=== PATIENT | female | born 1995 | race Caucasian/White ===

== ENCOUNTER 2019-01-01 11:35 | Outpatient (REF) | payer OTHER, SELFPAY ==
--- NOTE | 2019-01-01 10:10 | PAPFT_PTH ---
PATIENT: Patricia Collazo LOC: [facility] U#:[id number] AGE/SX: 23/F ROOM: RE01/01/[address]: BRISSA Beck : 1995 BED: DIS: 01/01/2019 SPEC #: [id number] RECD: 01/01/19 13:03 STATUS: HAYLEEIsaías TEJEDA #: [id number] KWAME: 01/01/19 10:[address]: Leslie White DEPT: [facility] Cytology RECD BY: Luana Mclean ENTERED: 01/01/19 13:04 SP TYPE: PAPFT OTHR DR: Jessica Engle MD Tissues: 1 - CX/ENDOCX FOR PAP SMEARS Procedures: PAP THIN PREP/[facility] Screening Comments: [id number]
== END 2019-01-01 11:55 ==
LOC: LBN 11:35
PROVIDERS: PCP Pediatrics; Visit Provider Nurse Practitioner Family
DX: Z12.4 Encounter for screening for malignant neoplasm of cervix (principal)
CPT/HCPCS: 88142

== ENCOUNTER 2020-03-27 16:15 | Outpatient (REF) | payer BC, SELFPAY ==
--- NOTE | 2020-03-27 15:45 | PAPFT_PTH ---
PATIENT: Patricia Collazo LOC: [facility] U#:[id number] AGE/SX: 25/F ROOM: RE03/27/[address]: BRISSA Beck : 1995 BED: DIS: 03/27/2020 SPEC #: [id number] RECD: 03/27/20 18:13 STATUS: SHABBIR REQ #: [id number] KWAME: 03/27/20 15:[address]: Leslie White DEPT: [facility] Cytology RECD BY: Luana Mclean ENTERED: 03/27/20 18:14 SP TYPE: PAPFT OTHR DR: Jessica Engle MD Tissues: 1 - CX/ENDOCX FOR PAP SMEARS Procedures: PAP THIN PREP/UVM Screening Comments: [id number]
== END 2020-03-27 16:35 ==
LOC: LBN 16:15
PROVIDERS: PCP Pediatrics; Visit Provider Nurse Practitioner Family
DX: Z12.4 Encounter for screening for malignant neoplasm of cervix (principal)
CPT/HCPCS: 88142

== ENCOUNTER 2021-03-16 02:51 | Outpatient (CLI) | payer OTHER, SELFPAY ==
[2021-03-16 11:59] LABS: Kit/Specimen SENT
[2021-03-16 12:03] LABS: Abs Immature Grans 0.04 10^3/uL (0.0-0.06); Absolute Basophil Count 0.07 10^3/uL (0.0-0.2); Absolute Eosinophil Count 0.15 10^3/uL (0.0-0.7); Absolute Monocyte Count 0.95 10^3/uL (0.1-0.8); Basophils % 0.6; Eosinophils % 1.2; HCT 37.3 % (36.0-46.0); HGB 12.5 g/dL (11.2-15.7); Immature Grans % 0.3; Lymphocytes % 18.3; MCH 30.1 pg (27.0-33.0); MCHC 33.5 % (32.0-36.0); MCV 89.9 fL (80-95); MPV 9.5 fL (8.0-11.0); Monocytes % 7.6; Nucleated RBC 0 %; Platelet Count 230 10^3/uL (130-400); RBC 4.15 10^6/uL (3.93-5.22); RDW 12.3 % (11.7-14.6); RDW-SD 40.3 fL; WBC 12.49 10^3/uL (4.4-10.8)
[2021-03-16 12:04] LABS: Absolute Lymphocyte Count 2.29 10^3/uL (1.2-3.4); Absolute Neutrophil Count 8.99 10^3/uL (1.2-6.7)
[2021-03-17 09:46] LABS: HIV-1/2 Ag & Ab Screen Negative (Negative)
[2021-03-18 13:54] LABS: Syphilis Total Ab w/Reflex Nonreactive (Nonreactive)
[2021-03-19 09:26] LABS: Hepatitis B Surface Ag Negative (Negative)
[2021-03-19 10:45] LABS: Hepatitis C Ab w Rflx HCV PCR Negative (Negative)
[2021-03-19 12:49] LABS: Rubella IgG Ab (UVM) Positive (See Note); Varicella IgG Antibody Positive (See Note)
[2021-03-19 15:12] LABS: Chlamydia Result Negative (Negative); GC Result Negative (Negative)
== END 2021-03-16 02:52 | disposition home or self-care (01) ==
LOC: LBO 02:51
PROVIDERS: Visit Provider Advanced Practice Midwife
DX: Z34.91 Encounter for supervision of normal pregnancy, unspecified, first trimester (principal); Z11.3 Encounter for screening for infections with a predominantly sexual mode of transmission; Z11.4 Encounter for screening for human immunodeficiency virus [HIV]; Z11.59 Encounter for screening for other viral diseases; Z01.84 Encounter for antibody response examination
CPT/HCPCS: 80307; 86787; 86803; 86850; 86900; 86901; 87340; 87389; 87491; 87591; 85025; 86762; 86780; 87086

== ENCOUNTER 2021-07-20 02:06 | Outpatient (CLI) | payer OTHER, SELFPAY ==
[2021-07-20 08:19] LABS: HCT 35.7 % (36.0-46.0); HGB 11.6 g/dL (11.2-15.7); MCH 30.1 pg (27.0-33.0); MCHC 32.5 % (32.0-36.0); MCV 92.7 fL (80-95); MPV 9.8 fL (8.0-11.0); Platelet Count 191 10^3/uL (130-400); RBC 3.85 10^6/uL (3.93-5.22); RDW 13.7 % (11.7-14.6); RDW-SD 46.5 fL; WBC 11.94 10^3/uL (4.4-10.8)
[2021-07-20 08:28] LABS: Glucose,1 Hr (Glucola) 137 mg/dL (80-140)
== END 2021-07-20 02:07 | disposition home or self-care (01) ==
LOC: LBO 02:06
PROVIDERS: Visit Provider Advanced Practice Midwife
DX: Z34.93 Encounter for supervision of normal pregnancy, unspecified, third trimester (principal); Z3A.28 28 weeks gestation of pregnancy
CPT/HCPCS: 36415; 82950; 85027

== ENCOUNTER 2021-07-27 03:24 | Outpatient (CLI) | payer OTHER, SELFPAY ==
[2021-07-27 09:28] LABS: Glucose 1 Hour 135 mg/dL
[2021-07-27 11:28] LABS: Glucose 3 Hour 95 mg/dL
== END 2021-07-27 03:25 | disposition home or self-care (01) ==
LOC: LBO 03:24
PROVIDERS: Visit Provider Advanced Practice Midwife
DX: Z34.93 Encounter for supervision of normal pregnancy, unspecified, third trimester (principal)
CPT/HCPCS: 36415; 82951

== ENCOUNTER 2021-09-12 16:25 | Outpatient (REF) | payer OTHER, SELFPAY ==
[2021-09-12 17:19] LABS: *AMPHETAMINES SCREEN URINE Negative (Negative); *BARBITURATES SCREEN URINE Negative (Negative); *BENZODIAZEPINES SCREEN URINE Negative (Negative); Cannabinoids THC Negative (Negative); Cocaine Screen,Urine Negative (Negative); METHADONE URINE SCREEN Negative (Negative); OPIATES URINE SCREEN Negative (Negative); Tricyclic Antidepressants Negative (Negative)
[2021-09-19 09:39] LABS: Buprenorphine Negative ng/mL (Cutoff: 5.0); Norbuprenorphine Negative ng/mL (Cutoff: 2.5)
== END 2021-09-12 16:26 | disposition home or self-care (01) ==
LOC: LBN 16:25
PROVIDERS: Visit Provider Advanced Practice Midwife
DX: Z34.93 Encounter for supervision of normal pregnancy, unspecified, third trimester (principal); Z3A.35 35 weeks gestation of pregnancy
CPT/HCPCS: 80307; 87081

== ENCOUNTER 2021-10-07 13:10 | Observation (INO) | payer OTHER, SELFPAY ==
[2021-10-07 13:35] VITALS: BP 114/75; PULSE 84; TEMP 36.8
[2021-10-07 13:39] VITALS: BP 114/75; PULSE 84
[2021-10-07 13:51] LABS: ROM Plus Negative
--- NOTE | 2021-10-07 13:56 | PDOC.NST_ITS ---
Date of service: 10/07/21 Time of Service: 13:35 NST Evaluation Reason for NST Reasons for Nonstress Test: FALSE LABOR Gestational Age Gestational Age in Weeks and Days: 39 Weeks and 3Days Test and Monitor Explained Test/Monitor Explained: Test Explained, Monitor Explained and Patient Verbalized Understanding Vital Signs Blood Pressure: 114/75 Pulse: 84 Temperature: 98.2 F NST Information Date on Monitor: 10/07/21 Time on Monitor: 13:12 Date off Monitor: 10/07/21 Time off Monitor: 13:44 Total Time on Monitor: 32 NST Interventions: PO Hydration NST Evaluation Patient States Movement: Present FHR Baseline: 140 Variability: Moderate 6-25 bpm Accelerations: 15x15 Decelerations: None NST Results: Reactive Note NST Note Note: G1 at 39w3d presents for evaluation of possible ROM with reported small amount of fluid soaking inside of underwear this morning at 0500 but none since. Reports contractions that are tightening but not uncomfortable and active baby. Ferning is negative and ROM+ is negative today, SSE cervix closed and no fluid from OS with patient coughing. NST is reactive and reassuring. 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 Discharged from NST ambulatory and in satisfactory condition. WENDI NST Reviewed and Verified by: Stephanie Nazario
[2021-10-07 13:59] VITALS: BP 114/75; PULSE 84; TEMP 36.8
== END 2021-10-07 14:00 | disposition home or self-care (01) ==
PROVIDERS: Admitting Provider Advanced Practice Midwife; Visit Provider Advanced Practice Midwife
DX: O47.1 False labor at or after 37 completed weeks of gestation (principal); Z3A.39 39 weeks gestation of pregnancy
CPT/HCPCS: 84112; 59025

== ENCOUNTER 2021-10-08 12:09 | Inpatient (IN) | payer OTHER, SELFPAY ==
[2021-10-08] VITALS (16 sets, daily range): BP systolic 107–124; BP diastolic 67–78; PULSE 72–134; RESP 16–20; TEMP 36.7–37.2; O2SAT 96–100
--- NOTE | 2021-10-08 12:10 | W.PM.OBHPL1 ---
Date of service: 10/08/21 Time of Service: 12:10 Assessment and Plan Assessment and plan (1) Irregular uterine contractions: Status: Acute Assessment and plan: will observe times 2 hours and reassess. Not in active labor at this time. No leaking of fluid. WENDI OB-HPI Labor/Delivery History of Present Illness Reason for Visit: Pre-Jorge Chief Complaint: Uterine Contractions; Suspected Rupture of Membranes , Associated Signs and Symptoms of Suspected ROM: none noted at this time, assumed negative for ROM. WENDI. COLTON Calculator Estimated Delivery Date Method Current WG Current Estimate 10/11/21 Ultrasound #1 39w 4d Other Estimates 10/04/21 LMP (Certain) 40w 4d Comments: states contractions became stronger at 0500 today and that when she bent over to trim her toenails she had discharge. Uncertain if her water is leaking. She has not had to wear a pad since that time. States contractions became less on trip to the hospital. She is accompanied by her Mother and FOB. Wendi History of Present Expected Delivery Route/Plan - RUIZM FOB/lew Collazo (first child) BG Rosario Clemens FOB & pt's mother Liliana will be supports (both are vaccinated) GBS POSITIVE, plan for PCN prophylaxis in labor Specific Issues/Plan 1. [place] test done, wants gender placed in envelope for peanut picker. Declines AFP. 2. History of sacrum injury - mild back pain. 3. low lying placenta at 18 week US (0.9 cm from tip of os) 3a. Repeat US 28 wks 07/13 resolved 4. As of 06/11, both pt and FOB are fully vaccinated 5. 1-hr GTT - 137 , 3-hr GTT done 07/27: nml x4 6. Restless legs and leg cramps - magnesium recommend daily 7. Heartburn - TUMS PRN Assessment: History Reviewed & Current Review of Systems All systems reviewed & are unremarkable except as noted in HPI and below PFSH All Active Problems (Updated 10/08/21 @ 12:18 by Stephanie Nazario CNM) Irregular uterine contractions (Acute) GBS (group B Streptococcus carrier), +RV culture, currently (Acute) (Acute) Medical History Contraception (09/18/15) Injury of sacrum age 16, did physical therapy Low lying placenta nos or without hemorrhage, second trimester resolved 07/13/21 Positive test Family History Mother Healthy adult Depression Father Healthy adult Sister Asthma outgrown Depression Other Diabetes mat great GM Stroke MGGF Maternal Grandfather Colon cancer Paternal Grandmother Colon cancer Paternal Grandfather Prostate cancer Social History Smoking/Tobacco Use Status: Never Smoking risk assessment performed?: Yes Alcohol Intake: never Drug use: Never Adopted: No Household members: significant other and other Details: BF- Fu / 2 dogs and a cat 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 [employer] History History 1 Para 0 Hx # Term Pregnancies 0 Multiple births 0 Hx # Pregnancies 0 Ectopic pregnancies 0 AB induced 0 Hx Number of Living Children 0 AB spontaneous 0 Meds Allergies and Home Medications Allergies Allergy/AdvReac Type Severity Reaction Status Date / Time Sulfa (Sulfonamide Allergy Mild Red and Unverified 10/08/21 12:16 Antibiotics) blotchy Home Medications Medication Instructions Recorded Confirmed Type prenat.vits,leilani,jxr-[id number] 1 tab PO DAILY 03/02/21 10/02/21 History cetirizine 10 mg tablet 10 mg PO DAILY PRN 03/16/21 10/02/21 History magnesium oxide 250 mg PO DAILY 09/12/21 10/02/21 History Exam Constitutional Constitutional: no acute distress Detailed Labor and Delivery Exam Dilation: 0.5 Effacement (%): 50 station: -3 Cervix position: posterior Consistency: medium Doss Score: Cervical Points Exam 0 1 2 3 Dilation Closed 1-2cm 3-4 cm 5-6cm Effacement 0-30% 40-50% 60-70% 80% Consistency Firm Medium Soft Station -3 -2 -1,0 +1,+2 Position Posterior Mid Anterior DOSS Score(Cervical Ripeness Score): 2 Amniotic Membrane Status: Intact Nitrazine: Equivocal (due to pink discharge on paper, no obvious leaking, membranes palpated with VE, no leaking from OS) Contraction Frequency(min): 3-6 Contraction Duration(sec): 60 Contraction Intensity: Mild/Moderate Fetus A Heart Rate Baseline: 130 Monitor Accelerations: 10 X 10 Monitor Decelerations: None Variability: Moderate (6-25 BPM) Categories: Category I Est. Weight: 6 lb 8 oz HEENT Exam HEENT Exam: Normal Neck Exam Neck Exam: Normal Chest/Brest/Axilla Exam Chest Exam: Not Done Breast Exam Breast Exam: Not Done Respiratory Exam Respiratory Exam: Normal Cardiovascular Exam Cardiovascular Exam: Normal Abdominal Exam Abdominal Exam: Normal Rectal Exam Rectal Exam: Not Done Exam Exam: Normal Detailed Exam Comments: perineum dry, no fluid observed on skin, no fluid return with VE. Nitrazine equivocal. KH Extremities Exam Extremities Exam: Normal Back/Spine/Pelvis Exam Back Exam: Not Done Pelvis Adequate: Yes Skin Exam Skin Exam: Normal Neurological Exam Neurological Exam: Normal Psychiatric Exam Psychiatric Exam: Normal Results Results Group Beta Strep: Positive Blood Type: O+ Rubella Status: Immune Varicella Immunity: Immune Risk Assessment Risk for Shoulder Dystocia Historical/Initial OB: NEGATIVE FOR: Pelvic Abnormality, Pre- BMI>30, Previous Shoulder Dystocia or Previous Macrosomia 40 Weeks: NEGATIVE FOR: EFW> 4500 gms, Maternal Weight Gain >40lb or Post Dates Increased Risk?: No Delivery Plan @ 40 wks: 10/08/21 YOSELYN ADAME Risk for Pre-Eclampsia Daily Dose ASA Indicated: No Date Initiated/Initials: not indicated Yes, if one or more: NEGATIVE FOR: Hx Pre-E/Gest HTN, Chronic HTN, Multiple Gestation, Pre-gestational DM, Renal Disease, Systemic Lupus or APA Syndrome Yes, if 2 or more: POSITIVE FOR: Nulliparity; NEGATIVE FOR: Age>= 35 yrs, >10yr btwn pregnancies, BMI>30, ethinicty, Mother/Sister w/ Pre-E or Previous IUGR Risk for Post- Hemorrhage Initial: NEGATIVE FOR: Multiple Gestation, Previous PPH, Known Clotting Deficiency, Grand Multiparity or Anticoagulation Risks Reviewed Risks Reviewed Upon Admission: Yes
[2021-10-08] MEDS: Ondansetron O.D.T. 4 MG TABEF PO (13:32)
[2021-10-08 13:54] LABS: ROM Plus Positive
--- NOTE | 2021-10-08 14:01 | W.PM.OBNL1 ---
Date of service: 10/08/21 Time of Service: 14:01 Informed Consent Informed Consent: Augmentation of Labor and Other (PCN for GBS prophylaxis) Pelvic Exam Comments: deferred as patient is remote from delivery and GBS + Fetus A Amniotic Membrane Status: Ruptured (1045 today with gush, no fluid since that time. WENDI) Date of Membrane Rupture: 10/08/21 Time of Membrane Rupture: 10:45 Assessment Note: patient is currently in tub but will be getting into bed for IV start and EFM tracing. Assessment and Plan Assessment and plan (1) Full-term PROM with onset of labor within 24 hours of rupture: Status: Acute Assessment and plan: will admit due to Positive ROM + testing and persistent contractions will begin PCN prophylaxis Will discuss potential for labor augmentation, risks, benefits and alternatives and continue to monitor for progression of uterine contractions. WENDI Objective Laboratory Results Membranes Rupture Positive 10/08/21 13:25 Vital Signs Reviewed: Yes Subjective Interval history since last seen: States contractions are getting stronger. ROM + is positive so patient will be admitted and we will begin PCN management of GBS + status. WENDI Interventions Other (PCN GBS prophylaxis)
[2021-10-08 14:37] LABS: Source Nasal/Nares
[2021-10-08 15:11] LABS: HCT 37.7 % (36.0-46.0); HGB 12.3 g/dL (11.2-15.7); MCH 29.9 pg (27.0-33.0); MCHC 32.6 % (32.0-36.0); MCV 91.5 fL (80-95); MPV 10.8 fL (8.0-11.0); Platelet Count 167 10^3/uL (130-400); RBC 4.12 10^6/uL (3.93-5.22); RDW 14.5 % (11.7-14.6); RDW-SD 48.1 fL; WBC 18.71 10^3/uL (4.4-10.8)
[2021-10-08] MEDS: Normal Saline Flush 10 ML SYR IVP ×2 (15:12→16:08)
[2021-10-08] MEDS: Penicillin G POT. 5,000,000 UNITS in Normal Saline 100 ML 200 UNITS IVPB (15:15)
[2021-10-08 15:23] LABS: COVID-19 PCR Negative (Negative)
--- NOTE | 2021-10-08 18:09 | W.PM.OBNL1 ---
Date of service: 10/08/21 Time of Service: 18:09 Informed Consent Informed Consent: Augmentation of Labor and Other (PCN for GBS prophylaxis) Pelvic Exam Dilation: 6.5 Effacement (%): 90 station: -1 Cervix Position: posterior Consistency: soft Vaginal Exam Presentation: Cephalic Comments: VE per patient request. She is relieved by progress and determined to continue without pain medication other than tub and nitrous oxide. Contractions Monitor Mode: Palpation Contraction Frequency(min): 2-4 Contraction Duration(sec): 60-90 Intensity: Moderate/Strong Fetus A Monitor: Novii (novii is on and intermittent FHR 130 then monitor is off.) Heart Rate Baseline: 130 Assessment and Plan Assessment and plan (1) Active labor at term: Status: Acute Assessment and plan: continue present management, expect NVD. (2) GBS (group B Streptococcus carrier), +RV culture, currently : Status: Acute Assessment and plan: will be receiving second dose of PCN within 1 hour. will continue every 4 hours until delivery. Objective Abnormal lab results 10/08/21 Range/Units 15:00 WBC 18.71 H (4.4-10.8) 10^3/uL Temp Pulse Resp BP 98.6 F 134 H 16 124/68 10/08/21 17:14 10/08/21 17:14 10/08/21 14:39 10/08/21 17:14 Laboratory Results WBC 18.71 10^3/uL (4.4-10.8) H 10/08/21 15:00 RBC 4.12 10^6/uL (3.93-5.22) 10/08/21 15:00 Hgb 12.3 g/dL (11.2-15.7) 10/08/21 15:00 Hct 37.7 % (36.0-46.0) 10/08/21 15:00 MCV 91.5 fL (80-95) 10/08/21 15:00 MCH 29.9 pg (27.0-33.0) 10/08/21 15:00 MCHC 32.6 % (32.0-36.0) 10/08/21 15:00 RDW 14.5 % (11.7-14.6) 10/08/21 15:00 Plt Count 167 10^3/uL (130-400) 10/08/21 15:00 MPV 10.8 fL (8.0-11.0) 10/08/21 15:00 Membranes Rupture Positive 10/08/21 13:25 COVID-19 Source Nasal/Nares 10/08/21 14:30 SARS-CoV-2 (PCR) Negative (Negative) 10/08/21 14:30 Patient ABO/Rh O Positive 10/08/21 15:00 Antibody Screen NEGATIVE 10/08/21 15:00 Vital Signs Reviewed: Yes Notable Details: pulse now in 80-90 range. Subjective Interval history since last seen: Patricia is in the tub with her Tank and her Mom at her side. She is using nitrous with good relief. Results Hemoglobin/Hematocrit: Hgb 12.3 g/dL (11.2-15.7) 10/08/21 15:00 Hct 37.7 % (36.0-46.0) 10/08/21 15:00 Abnormal Lab Findings: Abnormal Labs 10/08/21 15:00 WBC 18.71 H Additional Findings Results: COVID is negative.
[2021-10-08] MEDS: Oxytocin 10 UNITS/ML VIAL IM (20:34)
[2021-10-08] MEDS: Lidocaine 1% Multi-Dose 20 ML VIAL IJ (21:00)
--- NOTE | 2021-10-08 21:00 | OBVDS_ITS ---
Date of service: 10/08/21 Time of Service: 21:00 OB Labor/ Delivery Information Baby A Delivery Delivery Method: Spontaneaous Presentation: Cephalic Vertex Position: Right Occipital Transverse Cord Description-Baby A: 3 Vessels and Clamped/Cut Amniotic Fluid: Clear Estimated Blood Loss: 300 Delivery Outcome: Liveborn Transferred: Remains with Mother Note: Patricia Zuniga developed increasing rectal pressure and began to bear down involuntarily while in tub at 1999. VE 10/90/+1. Patient pushed with excellent effort and head delivered at 2022. Head was ROP and rotated to ROT due to patient positioning and difficulty opening her legs, we helped her with McR oberts position and the left shoulder was not coming with maternal pushing effort alone at 60 seconds and RN applied supra pubic pressure with excellent effect and shoulders and baby delivered quickly at 2023 and placed onto mother's chest for skin to skin. Baby was dried and stimulated and had lusty cry. score 7 at 1 minute and 9 at 5 minutes. Cord was double clamped and cut by FOB at 5 minutes of life. Pitocin 10 units IM is given. Placenta delivered via lopez mechanism, intact at 2039. Patient was able to get out of tub and transfer to bed where we were able to repair 1st degree midline perineal lac with 1 stitch of 3.0 chromic under 1% lidocaine. There are bilateral labia minora lacerations that are hemostatic and left unrepaired per patient request. Fundus firms to U-1 with massage. EBL 300 cc. Sponge, needle and instrument count are correct. Mother and baby are in satisfactory condition. Baby girl Rosario Clemens weight 7lb8oz. Patricia plans to breast feed her daughter. Positive family bonding noted. Providers Nurse Pantry Steward/Stewardess: Stephanie Nazario Nurse: Autumn Bishop Nurse: Joanna Jason Labor/Delivery Information Number of Babies in Womb: 1 Steroids Given: None Reason Steroids Not Administered: N/A Group Beta Strep: Positive Antibiotics Administered: Yes Number of Doses of Antibiotics: 2 Rubella Status: Immune Blood Type: O+ Varicella Immunity: Immune Maternal Complications: None Shoulder Dystocia: Yes Note: After head delivered and rotated from ROP to ROT, the left shoulder did not deliver with use of Taniya maneuver and at 1 minute of life we emplyed supra pubic pressure with excellent result of shoulders delivering easily and baby was brought to Mother's chest for skin to skin. Baby was dried and stimulated and had spontaneous cry. 7 at 1 minute and 9 at 5 minutes. See complete delivery note as well. KH Stages of Labor Onset of Labor Date: 10/08/21 Onset of Labor Time: 05:00 Complete Dilatation Date: 10/08/21 Complete Dilatation Time: 20:00 Labor - Stage 1 Duration: 0 minutes ROM Baby A: 10/08/21 ROM Baby A: 10:45 ROM Total Time- Baby A: [id number] Infant Delivery Date-Baby A: 10/08/21 Infant Delivery Time-Baby A: 20:24 Labor Stage 2 Duration: 24 minutes Placenta Delivery Date-Baby A: 10/08/21 Placenta Delivery Time-Baby A: 20:40 Labor-Stage 3 Duration: 16 minutes Total Length of Labor-Baby A: 15 hours and 24 minutes Placenta Status: Delivered Baby A Gender: Female Gestational Status: Term (39-41.6 wks) Gestational Age in Weeks/Days: 39 Weeks and 4 Days
[2021-10-08] MEDS: Ibuprofen 600 MG TAB PO (21:27)
[2021-10-08] MEDS: Acetaminophen 325 MG TAB 650 MG PO (21:27)
[2021-10-08] MEDS: Hamamelis Leaf/Glycerin 100 EACH BOX PR (21:28)
[2021-10-08] MEDS: Dibucaine 1% 28 GM TUBE TP (21:28)
[2021-10-09 00:24] VITALS: BP 120/73; PULSE 90; RESP 20; TEMP 37; O2SAT 96
[2021-10-09] MEDS: Acetaminophen 325 MG TAB 650 MG PO ×3 (03:30→15:53)
[2021-10-09] MEDS: Ibuprofen 600 MG TAB PO (03:30)
[2021-10-09 03:56] VITALS: BP 114/77; PULSE 90; RESP 20; TEMP 36.8; O2SAT 97
[2021-10-09 07:40] VITALS: BP 117/80; PULSE 83; RESP 16; TEMP 36.6; O2SAT 98
--- NOTE | 2021-10-09 07:57 | W.PM.OBPNV1 ---
Date of service: 10/09/21 Time of Service: 07:57 Assessment and Plan Assessment and plan (1) care following vaginal delivery: Start date: 10/09/21 Start time: 08:01 Status: Acute Assessment and plan: continue present management expect discharge 10/10/21 am. (2) Lactating mother: Status: Acute Assessment and plan: will continue to work with nursing and today to establish good breast feeding skills prior to discharge. Subjective Subjective Interval history: Feeling well. out of bed without difficulty. plans discharge tomorrow am. Patient comments: No complaints, Pain well controlled and Flatus present baby status: Doing well, Nursing well, Rooming in and Strong Bonding Observed feeding status: Exclusively breast feeding Exam Physical Exam Vital signs: Temp Pulse Resp BP Pulse Ox 98.2 F 90 20 114/77 97 10/09/21 03:56 10/09/21 03:56 10/09/21 03:56 10/09/21 03:56 10/09/21 03:56 Vital Signs Reviewed: Yes Constitutional Constitutional: no acute distress and average body habitus HEENT Exam HEENT Exam: Normal Neck Exam Neck Exam: Normal Breast Exam Bilateral: Breast Exam: Normal Nipple Exam: Normal Respiratory Exam Respiratory Exam: Normal Cardiovascular Exam Cardiovascular Exam: Normal Abdominal Exam Comments: Fundus firm at U, small lochia. Fundal Exam Fundus: Below Umbilicus and Firm Rectal Exam Rectal Exam: Hemmorhoids Comments: small hemorrhoids noted, soft. Extremities Exam Extremity Exam: Normal Back/Spine/Pelvis Exam Back Exam: Not Done Skin Exam Skin Exam: Normal Neurological Exam Neurological Exam: Normal Psychiatric Exam Psychiatric Exam: Normal Results Hemoglobin/Hematocrit: Hgb 12.3 g/dL (11.2-15.7) 10/08/21 15:00 Hct 37.7 % (36.0-46.0) 10/08/21 15:00 Abnormal Lab Findings: Abnormal Labs 10/08/21 15:00 WBC 18.71 H
[2021-10-09 12:00] VITALS: BP 118/76; PULSE 80; RESP 16; TEMP 36.7; O2SAT 98
[2021-10-09 16:00] VITALS: BP 112/80; PULSE 111; RESP 16; TEMP 36.8; O2SAT 97
[2021-10-09 20:15] VITALS: BP 117/79; PULSE 114; RESP 18; TEMP 36.8
[2021-10-10 01:15] VITALS: BP 107/73; PULSE 104; RESP 18
[2021-10-10] MEDS: Acetaminophen 325 MG TAB 650 MG PO (07:08)
[2021-10-10] MEDS: Docusate Sodium 100 MG CAP PO (07:17)
[2021-10-10 07:28] VITALS: BP 109/71; PULSE 88; RESP 18; TEMP 36.8; O2SAT 97
--- NOTE | 2021-10-10 09:04 | W.PM.OBPNV1 ---
Date of service: 10/10/21 Time of Service: 09:04 Assessment and Plan Assessment and plan (1) care following vaginal delivery: Status: Acute Assessment and plan: Caring for baby independently. Pain is managed well with oral analgesics. Voiding without difficulty. well. A - stable mother and baby , Post day 2 P - Discharge to home. Routine post instructions. [facility] Subjective Subjective Patient comments: Pain well controlled baby status: Doing well [place] feeding status: Exclusively breast feeding Narrative: in the tub over 1st degree laceration. Some discomfort with nursing, relieved with good positioning. She has received support from Zoey PEÑA Exam Physical Exam Vital signs: Temp Pulse Resp BP Pulse Ox 98.2 F 88 18 109/71 97 10/10/21 07:28 10/10/21 07:28 10/10/21 07:28 10/10/21 07:28 10/10/21 07:28 Vital Signs Reviewed: Yes Constitutional Constitutional: no acute distress Respiratory Exam Respiratory Exam: Normal Cardiovascular Exam Cardiovascular Exam: Normal Fundal Exam Fundus: Below Umbilicus Extremities Exam Extremity Exam: Normal Back/Spine/Pelvis Exam Back Exam: Normal Skin Exam Skin Exam: Normal Psychiatric Exam Psychiatric Exam: Normal Results Hemoglobin/Hematocrit: Hgb 12.3 g/dL (11.2-15.7) 10/08/21 15:00 Hct 37.7 % (36.0-46.0) 10/08/21 15:00 Abnormal Lab Findings: Abnormal Labs 10/08/21 15:00 WBC 18.71 H
--- NOTE | 2021-10-11 14:55 | W.PM.OBDISCH ---
Date of service: 10/11/21 Time of Service: 14:55 DS: Diagnosis Discharge Diagnosis (1) care following vaginal delivery: Status: Acute Asessment and Plan: Caring for baby independently. Pain is managed well with oral analgesics. Voiding without difficulty. well. A - stable mother and baby , Post day 2 P - Discharge to home. Routine post instructions. [facility]. (2) Lactating mother: Status: Acute Discharge Plan Disposition Patient Disposition: HOME Condition: Stable Discharge Details Reason For Visit: Irregular Contractions Admit Date/Time: 10/08/21 12:22 Admit Provider: Stephanie Nazario Attending Provider: Stephanie Nazario Primary Care Provider: Unknown,Unknown Home Meds and New Rx's Prescriptions: Continued cetirizine [Zyrtec] 10 mg tablet 10 mg PO DAILY PRNRF: 0 prenat.vits,leilani,[id number] Tablet 1 tab PO DAILY RF: 0 magnesium oxide 250 mg magnesium tablet 250 mg PO DAILY RF: 0 Discharge Instructions Stand Alone Forms: BC Instructions, BC Post Vaginal Deliver Activity:: Activity as Tolerated Equipment/Supplies:: No Equipment Needed Diet:: As Tolerated Discharge Orders Discharge Orders: Discharge Order (Routine); Ordered 10/10/21 Ordered By: Stephanie Thibodeaux Discharge Data Discharge Date/Time-TO BE ENTERED AT DEPARTURE: 10/10/21 11:30 OB:DS Summary Summary Vaginal Delivery Method: Spontaneaous Episiotomy Description: None Contraception Discussed Contraception Discussed: Yes Contraceptive Plan: Control Pill/Patch, Gender-Baby A: Female weight: 7 lb 7.755 oz Status at Discharge Functional status at discharge: independent ambulation Overall status at discharge: patient is back to baseline Mental Status: mental status grossly normal Speech and Movement: speech and movement normal Mood: congruent mood Affect: normal affect Exam Physical Exam Vital signs: Temp Pulse Resp BP Pulse Ox 98.2 F 88 18 109/71 97 10/10/21 07:28 10/10/21 07:28 10/10/21 07:28 10/10/21 07:28 10/10/21 07:28 Vital Signs Reviewed: Yes Constitutional Constitutional: no acute distress Respiratory Exam Respiratory Exam: Normal Cardiovascular Exam Cardiovascular Exam: Normal Fundal Exam Fundus: Below Umbilicus and Firm Exam Patient deferred: external exam Perineum: Repair Intact Extremities Exam Extremity Exam: Normal PFSH All Active Problems (Updated 10/09/21 @ 08:01 by Stephanie Nazario CNM) Lactating mother (Acute) care following vaginal delivery (Acute) (Acute) Medical History (Updated 10/09/21 @ 08:01 by Stephanie Nazario CNM) Active labor at term Contraception (09/18/15) Full-term PROM with onset of labor within 24 hours of rupture GBS (group B Streptococcus carrier), +RV culture, currently Injury of sacrum age 16, did physical therapy Irregular uterine contractions Low lying placenta nos or without hemorrhage, second trimester resolved 07/13/21 Positive test Family History Mother Healthy adult Depression Father Healthy adult Sister Asthma outgrown Depression Other Diabetes mat great GM Stroke MGGF Maternal Grandfather Colon cancer Paternal Grandmother Colon cancer Paternal Grandfather Prostate cancer Social History Smoking/Tobacco Use Status: Never Smoking risk assessment performed?: Yes Alcohol Intake: never Drug use: Never Adopted: No Household members: significant other and other Details: BF- Fu / 2 dogs and a cat 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 [employer] History History 1 Para 0 Hx # Term Pregnancies 0 Multiple births 0 Hx # Pregnancies 0 Ectopic pregnancies 0 AB induced 0 Hx Number of Living Children 0 AB spontaneous 0 DS: Data Vitals/I&O Vitals and I&O: Vital Signs Temperature 98.2 F 10/10/21 07:28 Pulse 88 10/10/21 07:28 Pulse Rhythm Regular 10/10/21 07:25 Respiratory Rate 18 10/10/21 07:28 Respiratory Depth Normal 10/08/21 14:39 Blood Pressure 109/71 10/10/21 07:28 Blood Pressure Mean 83 10/10/21 07:28 Pulse Oximetry 97 10/10/21 07:28 Oxygen Delivery Method Room Air 10/08/21 14:39 Oxygen Flow Rate 0 10/08/21 14:39 Pain Level 3 10/10/21 07:28 Comment 10/08/21 19:24
== END 2021-10-10 11:30 | disposition home or self-care (01) | DRG 806 ==
LOC: OBS 14:50 → BCD 16:19 → OBS 16:20
PROVIDERS: Admitting Provider Advanced Practice Midwife; Visit Provider Advanced Practice Midwife
DX: O42.02 Full-term premature rupture of membranes, onset of labor within 24 hours of rupture (principal); O99.354 Diseases of the nervous system complicating childbirth; O99.824 Streptococcus B carrier state complicating childbirth; Z37.0 Single live birth; Z3A.39 39 weeks gestation of pregnancy; O70.0 First degree perineal laceration during delivery; O66.0 Obstructed labor due to shoulder dystocia; G25.81 Restless legs syndrome
CPT/HCPCS: 84112; 85027; 86850; 86900; 86901; 87635; G0378; J2540; J2590; J3490

== ENCOUNTER 2024-01-15 04:48 | Outpatient (CLI) | payer OTHER, SELFPAY ==
[2024-01-15 15:00] LABS: Panorama Kit Sent via Fed Ex
[2024-01-15 15:11] LABS: Abs Immature Grans 0.04 10^3/uL (0.0-0.06); Absolute Basophil Count 0.06 10^3/uL (0.0-0.2); Absolute Eosinophil Count 0.18 10^3/uL (0.0-0.7); Absolute Lymphocyte Count 2.31 10^3/uL (1.2-3.4); Absolute Monocyte Count 0.68 10^3/uL (0.1-0.8); Absolute Neutrophil Count 6.21 10^3/uL (1.2-6.7); Basophils % 0.6; Eosinophils % 1.9; HCT 37.2 % (36.0-46.0); HGB 12.2 g/dL (11.2-15.7); Immature Grans % 0.4; Lymphocytes % 24.4; MCH 29.2 pg (27.0-33.0); MCHC 32.8 % (32.0-36.0); MCV 89 fL (80-95); MPV 9.7 fL (8.0-11.0); Monocytes % 7.2; Neutrophils % 65.5; Platelet Count 243 10^3/uL (130-400); RBC 4.18 10^6/uL (3.93-5.22); RDW 12.9 % (11.7-14.6); RDW-SD 42.1 fL; WBC 9.48 10^3/uL (4.4-10.8)
[2024-01-15 23:23] LABS: Hepatitis B Surface Ag Negative (Negative)
[2024-01-15 23:53] LABS: HIV-1/2 Ag & Ab Screen Negative (Negative)
[2024-01-16 00:06] LABS: Hepatitis C Ab w Rflx HCV PCR Negative (Negative)
[2024-01-16 11:48] LABS: Varicella IgG Antibody Positive (See Note)
[2024-01-16 11:50] LABS: Rubella IgG Ab (UVM) Positive (See Note)
[2024-01-17 00:54] LABS: Syphilis IgG w/Reflex Nonreactive (Nonreactive)
== END 2024-01-15 04:49 | disposition home or self-care (01) ==
LOC: LBO 04:48
PROVIDERS: Visit Provider Advanced Practice Midwife
DX: Z34.91 Encounter for supervision of normal pregnancy, unspecified, first trimester (principal)
CPT/HCPCS: 36415; 86787; 86803; 86850; 86900; 86901; 87340; 87389; 85025; 86762; 86780

== ENCOUNTER 2024-01-15 15:13 | Outpatient (REF) | payer OTHER, SELFPAY ==
--- NOTE | 2024-01-15 14:00 | PAPFT_PTH ---
PATIENT: Patricia Collazo LOC: [facility] U#:[id number] AGE/SX: 28/F ROOM: RE01/15/[address]: Stephanie Nazario CNM : 1995 BED: DIS: 01/15/2024 SPEC #: [id number] RECD: 01/15/24 17:37 STATUS: SHABBIR REQ #: [id number] KWAME: 01/15/24 14:[address]: Stephanie Nazario DEPT: [facility] Cytology RECD BY: Luana Mclean ENTERED: 01/15/24 17:37 SP TYPE: PAPFT OTHR DR: Unknown,Unknown Tissues: 1 - CX/ENDOCX FOR PAP SMEARS Procedures: PAP THIN PREP/UVM Screening Comments: [id number] (CHLAMYDIA/GC)
[2024-01-16 15:21] LABS: Chlamydia Result Negative (Negative); GC Result Negative (Negative)
== END 2024-01-15 15:14 | disposition home or self-care (01) ==
LOC: LBN 15:13
PROVIDERS: Visit Provider Advanced Practice Midwife
DX: Z34.91 Encounter for supervision of normal pregnancy, unspecified, first trimester; B96.89 Other specified bacterial agents as the cause of diseases classified elsewhere
CPT/HCPCS: 87491; 87591; 88142; 87086; 87480; 87510; 87660

== ENCOUNTER 2024-05-18 01:55 | Outpatient (CLI) | payer OTHER, SELFPAY ==
[2024-05-18 10:52] LABS: HCT 35.8 % (36.0-46.0); HGB 11.7 g/dL (11.2-15.7); MCH 30.2 pg (27.0-33.0); MCHC 32.7 % (32.0-36.0); MCV 92 fL (80-95); MPV 9.6 fL (8.0-11.0); Platelet Count 196 10^3/uL (130-400); RBC 3.88 10^6/uL (3.93-5.22); RDW 13.9 % (11.7-14.6); RDW-SD 47.3 fL; WBC 11.81 10^3/uL (4.4-10.8)
[2024-05-18 11:20] LABS: Glucose,1 Hr (Glucola) 95 mg/dL (80-140)
== END 2024-05-18 01:56 | disposition home or self-care (01) ==
LOC: LBO 01:55
PROVIDERS: Visit Provider Advanced Practice Midwife
DX: Z34.93 Encounter for supervision of normal pregnancy, unspecified, third trimester (principal)
CPT/HCPCS: 36415; 82950; 85027

== ENCOUNTER 2024-07-08 13:03 | Outpatient (REF) | payer OTHER, SELFPAY | END 2024-07-08 13:04 | disposition home or self-care (01) | LOC: LBN 13:03 | PROVIDERS: Visit Provider Advanced Practice Midwife | DX: Z34.93 Encounter for supervision of normal pregnancy, unspecified, third trimester (principal); Z3A.36 36 weeks gestation of pregnancy | CPT/HCPCS: 87081 ==

== ENCOUNTER 2024-08-02 08:01 | Outpatient (CLI) | payer OTHER, SELFPAY ==
[2024-08-02 10:08] VITALS: BP 123/77; PULSE 102; TEMP 36.6
[2024-08-02 10:26] VITALS: BP 123/77; PULSE 102; TEMP 36.6
--- NOTE | 2024-08-02 15:51 | W.OBNST ---
Date of service: 08/02/24 Time of Service: 12:00 NST Evaluation Reason for NST Reasons for Nonstress Test: OTHER, SEE COMMENT Reason for NST Other: Rule out labor Gestational Age Gestational Age in Weeks and Days: 39 Weeks and 4Days Test and Monitor Explained Test/Monitor Explained: Test Explained, Monitor Explained and Patient Verbalized Understanding Vital Signs Blood Pressure: 123/77 Pulse: 102 Temperature: 97.9 F Urine Results Urine Protein: Negative Urine Ketones: Negative Urine Glucose: Negative Urine Blood: Negative NST Information Date on Monitor: 08/02/24 Time on Monitor: 10:12 Date off Monitor: 08/02/24 Time off Monitor: 11:26 Total Time on Monitor: 74 NST Interventions: PO Hydration Contraction Frequency: 4-9 NST Evaluation Patient States Movement: Present FHR Baseline: 130 Variability: Moderate 6-25 bpm Accelerations: 15x15 Decelerations: None NST Results: Reactive Note Ultrasound Done: N/A. NST Note Note: back on maternal right cvx 1-2/60%, posterior, intact membranes, vtx ROP -3 Keep next appt in 4 days in [facility] NST Reviewed and Verified by: Kati Metcalf
[2024-08-02 15:52] VITALS: BP 123/77; PULSE 102; TEMP 36.6
== END 2024-08-02 11:31 ==
LOC: BCD 08:02 → OBS 10:06
PROVIDERS: Visit Provider Advanced Practice Midwife
DX: O47.1 False labor at or after 37 completed weeks of gestation (principal); Z3A.39 39 weeks gestation of pregnancy
CPT/HCPCS: 59025

== ENCOUNTER 2024-08-04 19:39 | Inpatient (IN) | payer OTHER, SELFPAY ==
[2024-08-04] VITALS (14 sets, daily range): BP systolic 116–143; BP diastolic 54–86; PULSE 78–130; RESP 16–20; TEMP 36.6–37.2; O2SAT 98–99
--- NOTE | 2024-08-04 19:43 | W.OBNST ---
Date of service: 08/04/24 Time of Service: 19:43 NST Evaluation Reason for NST Reasons for Nonstress Test: FALSE LABOR Gestational Age Gestational Age in Weeks and Days: 39 Weeks and 6Days Test and Monitor Explained Test/Monitor Explained: Test Explained, Monitor Explained and Patient Verbalized Understanding Vital Signs Blood Pressure: 143/86 Pulse: 112 Temperature: 97.9 F Urine Results Urine Protein: Negative Urine Ketones: Negative Urine Glucose: Negative Urine Blood: Negative NST Information Date on Monitor: 08/04/24 Time on Monitor: 18:17 Date off Monitor: 08/04/24 Time off Monitor: 18:37 Total Time on Monitor: 20 NST Interventions: Notify Provider Contraction Frequency: Q5 NST Evaluation Patient States Movement: Present FHR Baseline: 135 Variability: Moderate 6-25 bpm Accelerations: 15x15 Decelerations: None NST Results: Reactive Note Ultrasound Done: N/A. NST Note Note: Patricia was experiencing regular contractions at home. 3-4 cms -2. Admitted in early labor. Reactive NST. NST Reviewed and Verified by: Stephanie Thibodeaux
--- NOTE | 2024-08-04 19:57 | HPE_ITS ---
Date of service: 08/04/24 Time of Service: 19:57 Assessment and Plan Assessment and plan (1) Spontaneous onset of labor: Status: Acute Assessment and plan: Admit to Center and routine admission labs. Comfort measures. Patricia wishes to use the tub when appropriate. Anticipate . OB-HPI Labor/Delivery History of Present Illness Reason for Visit: nst and labor check Chief Complaint: Uterine Contractions. COLTON Calculator Estimated Delivery Date Method Current WG Current Estimate 08/05/24 Ultrasound #1 39w 6d Other Estimates 07/24/24 LMP (Certain) 41w 4d Comments: Patricia experienced strong contractions at home. History of Present Expected Delivery Route/Plan - CNM FOB/ - Tank Collazo (2nd child together) BB yes to circ Desires a waterbirth & nitrous again, very quiet environment GBS negative Specific Issues/Plan 1. cfDNA LR male, declines CF and SMA 2. low risk for SD, Pre-E and PPH 3. 5 P's negative 4. Tingling and discomfort in left hip, history of sacrum injury age 16, referral to [facility]. 5. hemorrhoid and constipated. Colace escribed and relief methods. Assessment: History Reviewed & Current PFSH All Active Problems (Updated 08/04/24 @ 20:02 by Stephanie Thibodeaux CNM) Spontaneous onset of labor (Acute) Left sided sciatica (Acute) History of sacrum injury (Acute) Medical History (Updated 08/04/24 @ 20:02 by Stephanie Thibodeaux CNM) care following vaginal delivery Lactating mother Amenorrhea Positive test Active labor at term Full-term PROM with onset of labor within 24 hours of rupture Irregular uterine contractions GBS (group B Streptococcus carrier), +RV culture, currently Low lying placenta nos or without hemorrhage, second trimester resolved 07/13/21 Injury of sacrum age 16, did physical therapy Contraception (09/18/15) Family History Mother Healthy adult Depression Father Healthy adult Sister Asthma outgrown Depression Other Diabetes mat great GM Stroke MGGF Maternal Grandfather Colon cancer Paternal Grandmother Colon cancer Paternal Grandfather Prostate cancer Social History (Reviewed 01/15/24 @ 13:46 by ABRAHAM Vargas Smoking/Tobacco Use Status: Never Smoking risk assessment performed?: Yes Alcohol Intake: never Drug use: Never Adopted: No Household members: significant other and other Details: BF- Fu / 2 dogs and a cat Housing: house 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 Date GA/Weeks # Preg Succ Route Wgt Sex Labor Lgth Anesth esia Location Prov Complic 10/08/21 39 No Yes vaginal 7 lb 8 oz Female 15hrs 24min VICENTA Yarbrough Delivery Date: 10/08/21 Last Updated by: Kati Metcalf waterRosario berkowitz [facility] Allergies and Home Medications Allergies Allergy/AdvReac Type Severity Reaction Status Date / Time Sulfa (Sulfonamide Allergy Mild Red and Unverified 07/29/24 14:42 Antibiotics) blotchy Home Medications ?Medication ?Instructions ?Recorded ?Confirmed ?Type prenat.vits,leilani,[id number] 1 tab PO DAILY 03/02/21 08/02/24 History docusate sodium 100 mg capsule 100 mg PO BID #60 caps 04/02/24 08/02/24 Rx (Colace) Exam Physical Exam Vital signs: Temp Pulse Resp BP Pulse Ox 98.1 F 98 H 16 124/86 98 08/04/24 19:00 08/04/24 19:00 08/04/24 19:00 08/04/24 19:00 08/04/24 19:00 Vital Signs Reviewed: Yes Constitutional Constitutional: no acute distress Detailed Labor and Delivery Exam Dilation: 3 Effacement (%): 70 station: -2 Cervix position: mid Consistency: soft Gordillo Score: Cervical Points Exam 0 1 2 3 Dilation Closed 1-2cm 3-4 cm 5-6cm Effacement 0-30% 40-50% 60-70% 80% Consistency Firm Medium Soft Station -3 -2 -1,0 +1,+2 Position Posterior Mid Anterior Amniotic Membrane Status: Intact Monitor Mode: External Contraction Frequency(min): every 5 -6 minutes Contraction Duration(sec): 60 Contraction Intensity: Moderate Fetus A Heart Rate Baseline: 130 Monitor Accelerations: 15 X 15 Monitor Decelerations: None Variability: Moderate (6-25 BPM) Presentation: Cephalic Categories: Category I Est. Weight: 7.5 HEENT Exam HEENT Exam: Normal Respiratory Exam Respiratory Exam: Normal Cardiovascular Exam Cardiovascular Exam: Normal Abdominal Exam Abdominal Exam: Normal Rectal Exam Rectal Exam: Normal Exam Exam: Normal Extremities Exam Extremities Exam: Normal Skin Exam Skin Exam: Normal Psychiatric Exam Psychiatric Exam: Normal Risk Assessment Risk for Shoulder Dystocia Historical/Initial OB: NEGATIVE FOR: Pelvic Abnormality, Pre- BMI>30, Previous Shoulder Dystocia or Previous Macrosomia 36 Weeks: NEGATIVE FOR: Current Gestational DM, EFW>4500gms or Maternal Weight Gain>40lbs 40 Weeks: NEGATIVE FOR: EFW> 4500 gms, Maternal Weight Gain >40lb or Post Dates Increased Risk?: No Date/Initial: 01/15/24 Risk for Pre-Eclampsia Daily Dose ASA Indicated: No Date Initiated/Initials: not indicated Yes, if one or more: NEGATIVE FOR: Hx Pre-E/Gest HTN, Chronic HTN, Multiple Gestation, Pre-gestational DM, Renal Disease, Systemic Lupus or APA Syndrome Yes, if 2 or more: NEGATIVE FOR: Nulliparity, Age>= 35 yrs, >10yr btwn pregnancies, BMI>30, ethinicty, Mother/Sister w/ Pre-E or Previous IUGR Risk for Post- Hemorrhage Initial: NEGATIVE FOR: Multiple Gestation, Previous PPH, Known Clotting Deficiency, Grand Multiparity or Anticoagulation 36 Weeks: NEGATIVE FOR: Anemia, hgb<10, Low platelets(thrombocytopenia), Gestational HTN or Pre-E, Polyhydraminios or EFW>4500gms 40 Weeks: NEGATIVE FOR: Anemia, hgb<10, Low platelets (thrombocytopenia), Gestation HTN or Pre-E, Polyhydraminios or EFW>4500gms At Risk?: No Risks Reviewed Risks Reviewed Upon Admission: Yes
[2024-08-04 20:04] LABS: HCT 35.2 % (36.0-46.0); HGB 11.8 g/dL (11.2-15.7); MCH 29.7 pg (27.0-33.0); MCHC 33.5 % (32.0-36.0); MCV 89 fL (80-95); MPV 10.1 fL (8.0-11.0); Platelet Count 215 10^3/uL (130-400); RBC 3.97 10^6/uL (3.93-5.22); RDW 13.3 % (11.7-14.6); RDW-SD 43.3 fL
--- NOTE | 2024-08-04 21:06 | W.PM.OBNL1 ---
Date of service: 08/04/24 Time of Service: 21:06 Pelvic Exam Dilation: 4 Effacement (%): 90 station: -2 Cervix Position: mid Consistency: soft Vaginal Exam Presentation: Cephalic Contractions Monitor Mode: Palpation Contraction Frequency(min): every 5 min Contraction Duration(sec): 60 Intensity: Moderate/Strong Fetus A Monitor: Doppler Heart Rate Baseline: 130 Presentation: Cephalic FHR Rhythm: Regular Decelerations: None Amniotic Membrane Status: Intact Assessment and Plan Assessment and plan (1) Spontaneous onset of labor: Status: Acute Assessment and plan: Patricia moved to the tub for comfort. Anticipate . Objective Abnormal lab results 08/04/24 Range/Units 19:49 WBC 12.10 H (4.4-10.8) 10^3/uL Hct 35.2 L (36.0-46.0) % Temp Pulse Resp BP Pulse Ox 98.1 F 109 H 16 123/71 98 08/04/24 19:00 08/04/24 20:50 08/04/24 19:00 08/04/24 20:50 08/04/24 19:00 Laboratory Results WBC 12.10 10^3/uL (4.4-10.8) H 08/04/24 19:49 RBC 3.97 10^6/uL (3.93-5.22) 08/04/24 19:49 Hgb 11.8 g/dL (11.2-15.7) 08/04/24 19:49 Hct 35.2 % (36.0-46.0) L 08/04/24 19:49 MCV 89 fL (80-95) 08/04/24 19:49 MCH 29.7 pg (27.0-33.0) 08/04/24 19:49 MCHC 33.5 % (32.0-36.0) 08/04/24 19:49 RDW 13.3 % (11.7-14.6) 08/04/24 19:49 Plt Count 215 10^3/uL (130-400) 08/04/24 19:49 MPV 10.1 fL (8.0-11.0) 08/04/24 19:49 ABO/Rh O Positive 08/04/24 19:49 Antibody Screen NEGATIVE 08/04/24 19:49 Subjective Patient Reports: New Complaints Interval history since last seen: Patricia reports that her contractions feel stronger. She is experiencing back pain. She is using nitrous oxide for pain relief with good effect, Results Hemoglobin/Hematocrit: Hgb 11.8 g/dL (11.2-15.7) 08/04/24 19:49 Hct 35.2 % (36.0-46.0) L 08/04/24 19:49 Abnormal Lab Findings: Abnormal Labs 08/04/24 19:49 WBC 12.10 H Hct 35.2 L
[2024-08-04] MEDS: fentaNYL 100 MCG/2 ML VIAL 25 MCG IVP (22:39)
[2024-08-04] MEDS: Normal Saline Flush 10 ML SYR IVP (22:41)
[2024-08-04] MEDS: Oxytocin 10 UNITS/ML VIAL IM (23:12)
--- NOTE | 2024-08-04 23:24 | OBVDS_ITS ---
Date of service: 08/04/24 Time of Service: 23:24 OB Labor/ Delivery Information Baby A Delivery Delivery Method: Spontaneaous Presentation: Cephalic Cephalic Position: Vertex Vertex Position: Left Occipital Anterior Cord Description-Baby A: 3 Vessels Amniotic Fluid: Clear Estimated Blood Loss: 300 Delivery Outcome: Liveborn Transferred: Remains with Mother Note: Patricia used the tub and nitrous oxide with good effect. FHTs 130s during first stage of labor. She moved out of the tub and labored in various positions in bed using nitrous oxide. She was having a hard time managing her pain and fentanyl 25 mcg IV was given with good effect. She turned on her right side and began bearing down. FHTs 130s in second stage. Second stage huddle was done. Spontaneous delivery of male delivered in BALDO position with a hand p resenting with the face. Baby was placed on mother's abdomen and dried and stimulated. Spontaneous cry. Cord was clamped and cut by the baby's father . The placenta delivered spontaneously and appears to by intact with a three vessel cord. Pitocin 10 units IM was administered with delivery of the placenta. The perineum was inspected and it was intact. There was a trickle of bright blood and the uterus was massaged and she was straight cathed for 150 cc. The baby did breastfeed. After delivery, Mother and baby and father of the baby were stable and bonding well in the delivery room and there were no complications. Providers [employer] Tank Service Technician: Stephanie Thibodeaux Nurse: Olya Thacker Nurse: Claudette Daniels Labor/Delivery Information Steroids Given: None Reason Steroids Not Administered: N/A Group Beta Strep: Negative Antibiotics Administered: No Rubella Status: Immune Blood Type: O+ Varicella Immunity: Immune Born En Route: No Maternal Complications: None Shoulder Dystocia: No Stages of Labor Onset of Labor Date: 08/04/24 Onset of Labor Time: 16:30 Complete Dilatation Date: 08/04/24 Complete Dilatation Time: 11:50 Labor - Stage 1 Duration: -280 minutes ROM Baby A: 08/04/24 ROM Baby A: 22:03 ROM Total Time- Baby A: [id number] Infant Delivery Date-Baby A: 08/04/24 Delivery Time-Baby A: 23:01 Labor Stage 2 Duration: 11 hours and 11 minutes Placenta Delivery Date-Baby A: 08/04/24 Placenta Delivery Time-Baby A: 23:09 Labor-Stage 3 Duration: 8 minutes Total Length of Labor-Baby A: 6 hours and 31 minutes Placenta Status: Delivered Baby A Infant Gender: Male Gestational Status: Term (39-41.6 wks) Gestational Age in Weeks/Days: 39 Weeks and 6 Days Length-Baby A: 20.5 in
[2024-08-05] VITALS (8 sets, daily range): BP systolic 101–123; BP diastolic 59–85; PULSE 75–101; RESP 13–17; TEMP 36.5–37.1; O2SAT 97–100
[2024-08-05] MEDS: Docusate Sodium 100 MG CAP PO ×2 (00:34→08:18)
[2024-08-05] MEDS: Acetaminophen 325 MG TAB 650 MG PO ×2 (00:35→06:06)
[2024-08-05] MEDS: Ibuprofen 600 MG TAB PO ×3 (00:35→12:58)
[2024-08-05] MEDS: Dibucaine 1% 28 GM TUBE TP ×2 (00:36→09:06)
[2024-08-05] MEDS: Hamamelis Leaf/Glycerin 100 EACH BOX PR ×2 (00:36→09:06)
[2024-08-05] MEDS: Calcium Carbonate *TUMS* 500 MG CHEW PO (14:33)
[2024-08-06] MEDS: Acetaminophen 325 MG TAB 650 MG PO (05:10)
[2024-08-06] MEDS: Docusate Sodium 100 MG CAP PO (05:13)
[2024-08-06 08:03] VITALS: BP 114/83; PULSE 105; RESP 15; TEMP 36.8; O2SAT 97
--- NOTE | 2024-08-06 08:10 | W.PM.OBPNV1 ---
Date of service: 08/06/24 Time of Service: 08:10 Assessment and Plan Assessment and plan (1) Term delivered: Status: Acute Assessment and plan: A: PPD#2, nml recovery, well P: Discharge today IUD paragard is planned for BCM F/up in 2 & 6 wks Written instructions reviewed and given to pt Subjective Subjective Patient comments: No complaints, Pain well controlled, Tolerating diet and Flatus present Patient's Mood: happy baby status: Doing well, Nursing well, Rooming in and Strong Bonding Observed feeding status: Exclusively breast feeding Exam Physical Exam Vital signs: Temp Pulse Resp BP Pulse Ox 98.2 F 105 H 15 114/83 97 08/06/24 08:03 08/06/24 08:03 08/06/24 08:03 08/06/24 08:03 08/06/24 08:03 Vital Signs Reviewed: Yes Constitutional Constitutional: no acute distress, average body habitus and cooperative HEENT Exam HEENT Exam: Normal Neck Exam Neck Exam: Normal Breast Exam Bilateral: Breast Exam: Normal and Soft Nipple Exam: Normal and Uninjured Respiratory Exam Respiratory Exam: Normal Cardiovascular Exam Cardiovascular Exam: Normal Abdominal Exam Abdomen: Other (soft, nontender) Fundal Exam Fundus: Below Umbilicus and Firm Rectal Exam Rectal Exam: Normal Exam Perineum: Normal Extremities Exam Extremity Exam: Normal Back/Spine/Pelvis Exam Back Exam: Normal Skin Exam Skin Exam: Normal Neurological Exam Neurological Exam: Normal Psychiatric Exam Psychiatric Exam: Normal
--- NOTE | 2024-08-06 08:23 | DSE_ITS ---
Date of service: 08/06/24 Time of Service: 08:23 DS: Diagnosis Discharge Diagnosis (1) Term delivered: Status: Acute Discharge Plan Disposition Patient Disposition: Home Condition: Good Discharge Details Reason For Visit: nst and labor check Admit Date/Time: 08/04/24 19:39 Admit Provider: Stephanie Thibodeaux Attending Provider: Stephanie Thibodeaux Primary Care Provider: Unknown,Unknown Hospital Course Hospital Course: on day of admission, nml course Home Meds and New Rx's Prescriptions: No Action prenat.vits,leilani,[id number] Tablet 1 tab PO DAILY docusate sodium [Colace] 100 mg capsule 100 mg PO BID Qty: 60 7RF Discharge Instructions Additional Instructions: Keep 2 and 6 week appointments with the packerhead machine operator, call for any and all concerns. Stand Alone Forms: BC Instructions, BC Post Vaginal Deliver Activity:: Activity as Tolerated Equipment/Supplies:: No Equipment Needed Diet:: Normal Diet Discharge Orders Discharge Orders: Discharge Order (Routine); Ordered 08/06/24 Ordered By: Kati Metcalf OB:DS Summary Summary Vaginal Delivery Method: Spontaneaous Episiotomy Description: None Laceration Description: None Laceration Extension: N/A Contraception Discussed Contraception Discussed: Yes Contraceptive Plan: IUD, Infant Gender-Baby A: Male weight: 8 lb 5.865 oz Status at Discharge Functional status at discharge: independent ambulation Overall status at discharge: patient is progressing back to baseline Mental Status: mental status grossly normal Speech and Movement: speech and movement normal and speech clear Mood: congruent mood Affect: normal affect Quality:SDOH Health Related Social Needs: No Data to Display Exam Physical Exam Vital signs: Temp Pulse Resp BP Pulse Ox 98.2 F 105 H 15 114/83 97 08/06/24 08:03 08/06/24 08:03 08/06/24 08:03 08/06/24 08:03 08/06/24 08:03 Constitutional Constitutional: no acute distress, average body habitus and cooperative HEENT Exam HEENT Exam: Normal Neck Exam Neck Exam: Normal Breast Exam Bilateral: Breast Exam: Normal and Soft Respiratory Exam Respiratory Exam: Normal Cardiovascular Exam Cardiovascular Exam: Normal Abdominal Exam Abdomen: Other (soft, nontender) Fundal Exam Fundus: Below Umbilicus and Firm Rectal Exam Rectal Exam: Normal Exam Perineum: Normal Extremities Exam Extremity Exam: Normal Back/Spine/Pelvis Exam Back Exam: Normal Skin Exam Skin Exam: Normal Neurological Exam Neurological Exam: Normal Psychiatric Exam Psychiatric Exam: Normal PFSH All Active Problems (Updated 08/06/24 @ 08:23 by Kati Metcalf) Care and examination of lactating mother (Acute) Term delivered (Acute) Left sided sciatica (Acute) History of sacrum injury (Acute) Medical History (Updated 08/06/24 @ 08:23 by Kati Metcalf) Spontaneous onset of labor care following vaginal delivery Lactating mother Amenorrhea Positive test Active labor at term Full-term PROM with onset of labor within 24 hours of rupture Irregular uterine contractions GBS (group B Streptococcus carrier), +RV culture, currently Low lying placenta nos or without hemorrhage, second trimester resolved 07/13/21 Injury of sacrum age 16, did physical therapy Contraception (09/18/15) Family History Mother Healthy adult Depression Father Healthy adult Sister Asthma outgrown Depression Other Diabetes mat great GM Stroke MGGF Maternal Grandfather Colon cancer Paternal Grandmother Colon cancer Paternal Grandfather Prostate cancer Social History Smoking/Tobacco Use Status: Never Smoking risk assessment performed?: Yes Alcohol Intake: never Drug use: Never Adopted: No Household members: significant other and other Details: - Fu / 2 dogs and a cat Housing: house 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 Date GA/Weeks # Preg Succ Route Wgt Sex Labor Lgth Anesth esia Location Prov [facility] 10/08/21 39 No Yes vaginal 7 lb 8 oz Female 15hrs 24min VICENTA Yarbrough Delivery Date: 10/08/21 Last Updated by: Kati Metcalf waterRosario berkowitz DS: Data Vitals/I&O Vitals and I&O: Vital Signs Temperature 98.2 F 08/06/24 08:03 Temperature 97.9 F 08/04/24 19:44 Temperature Source Oral 08/05/24 20:39 Pulse 105 H 08/06/24 08:03 Pulse 112 08/04/24 19:44 Pulse Rhythm Regular 08/06/24 08:03 Respiratory Rate 15 08/06/24 08:03 Blood Pressure 114/83 08/06/24 08:03 Blood Pressure 143/86 08/04/24 19:44 Blood Pressure Mean 93 08/06/24 08:03 Pulse Oximetry 97 08/06/24 08:03 Oxygen Delivery Method Room Air 08/04/24 19:00 Oxygen Flow Rate 0 08/04/24 19:00 Pain Level 0 08/06/24 08:03 Intake & Output 08/05/24 08/05/24 08/06/24 11:59 23:59 11:59 Output Total 1350 / 1350 Balance -1350 / -1350 Output: Urine 1350 / 1350 Other: Urine Color Trafalgar Trafalgar Urine Appearance Clear Urine Odor Normal
--- NOTE | 2024-08-06 08:24 | W.PM.OBPNV1 ---
Date of service: 08/05/24 Time of Service: 15:00 Assessment and Plan Assessment and plan (1) Term delivered: Status: Acute Assessment and plan: A: PPD#1, nml recovery, off to a good start P: Discharge planned tomorrow IUD paragard is planned for BCM circumcision today Subjective Subjective Patient comments: No complaints, Pain well controlled, Tolerating diet and Flatus present Patient's Mood: happy [place] baby status: Doing well, Nursing well, Rooming in and Strong Bonding Observed [place] feeding status: Exclusively breast feeding Exam Physical Exam Vital signs: Temp Pulse Resp BP Pulse Ox 98.2 F 105 H 15 114/83 97 08/06/24 08:03 08/06/24 08:03 08/06/24 08:03 08/06/24 08:03 08/06/24 08:03 Vital Signs Reviewed: Yes Constitutional Constitutional: no acute distress, average body habitus and cooperative HEENT Exam HEENT Exam: Normal Neck Exam Neck Exam: Normal Breast Exam Bilateral: Breast Exam: Normal and Soft Respiratory Exam Respiratory Exam: Normal Cardiovascular Exam Cardiovascular Exam: Normal Abdominal Exam Abdomen: Other (soft, nontender) Fundal Exam Fundus: Below Umbilicus and Firm Rectal Exam Rectal Exam: Normal Exam Perineum: Normal Extremities Exam Extremity Exam: Normal Back/Spine/Pelvis Exam Back Exam: Normal Skin Exam Skin Exam: Normal Neurological Exam Neurological Exam: Normal Psychiatric Exam Psychiatric Exam: Normal Results Hemoglobin/Hematocrit: Hgb 11.8 g/dL (11.2-15.7) 08/04/24 19:49 Hct 35.2 % (36.0-46.0) L 08/04/24 19:49 Abnormal Lab Findings: Abnormal Labs 08/04/24 19:49 WBC 12.10 H Hct 35.2 L Hemorrrhage Note IV Site Right Wrist: IV Catheter Gauge: 20
== END 2024-08-06 09:45 | disposition home or self-care (01) | DRG 807 ==
LOC: BCD 19:42 → OBS 19:42
PROVIDERS: Admitting Provider Advanced Practice Midwife; Visit Provider Advanced Practice Midwife
DX: O75.89 Other specified complications of labor and delivery (principal); Z37.0 Single live birth; Z3A.39 39 weeks gestation of pregnancy; O99.62 Diseases of the digestive system complicating childbirth; M54.32 Sciatica, left side; K64.8 Other hemorrhoids; K59.00 Constipation, unspecified
CPT/HCPCS: 85027; 86850; 86900; 86901; J2590; J3010

== ENCOUNTER 2025-02-04 12:59 | Outpatient (CLI) | payer BC, SELFPAY ==
--- NOTE | 2025-02-04 12:45 | DI.RAD_ITS ---
Exam(s) XR CHEST 2V PA LATERAL EXAM: XR CHEST 2V PA LATERAL CLINICAL HISTORY: eval pneumonia, cough, r05.9. TECHNIQUE: 2D digital imaging was performed. COMPARISON: No exams were available for comparison FINDINGS: 2 views: Heart size is normal. The mediastinum is not widened. Lungs are clear. No infiltrates nor pleural effusions. IMPRESSION: No acute pulmonary findings. DATA REPOSITORY: RADIATION DOSE DELIVERED:
--- NOTE | 2025-02-04 16:39 | DI.VRAD_ITS ---
PROCEDURE INFORMATION: Exam: XR Chest Exam date and time: 02/04/2025 4:00 PM Age: 29 years old Clinical indication: Other: Eval pneumonia, cough TECHNIQUE: Imaging protocol: Radiologic exam of the chest. Views: 2 views. COMPARISON: No relevant prior studies available. FINDINGS: Lungs: Unremarkable. No consolidation. Pleural spaces: Unremarkable. No pleural effusion. No pneumothorax. Heart/Mediastinum: Unremarkable. No cardiomegaly. Bones/joints: Unremarkable. IMPRESSION: No acute findings. Dictated and Authenticated by: Nell Fish MD. Orderin Beny Smith MD
== END 2025-02-04 13:19 ==
LOC: DI 13:00
PROVIDERS: Visit Provider Nurse Practitioner Family
DX: R05.9 Cough, unspecified (principal)
CPT/HCPCS: 71046